=== PATIENT | male | born 1945 | race African-American/Black ===

== ENCOUNTER 2017-11-04 11:47 | Outpatient (CLI) | payer MEDICARE, MEDICAID ==
--- NOTE | 2017-11-04 15:28 | RAD ---
LEFT HIP TWO VIEWS: Date: 11-04-17 Comparison: 12-27-15 from [facility] FINDINGS: Again noted is a left hip arthroplasty. There is no sign of loosening or infection around the hardwar e. No acute fracture was seen. No cause for the acute pain was appreciated. IMPRESSION: No acute bony finding. POS: HOME
== END 2017-11-04 11:48 | disposition home or self-care (01) ==
LOC: BURRAD 11:47
PROVIDERS: ATTEND Family Medicine
DX: M25.552 Pain in left hip (principal)